=== PATIENT | female | born 1990 | race Caucasian/White ===

== ENCOUNTER 2016-11-29 09:25 | Emergency (ER) | payer MEDICAID ==
[~2016-11-29] VITALS: Ht 160 cm; Wt 75.0 kg
[2016-11-29 09:29] VITALS: BP 116/75; PULSE 89; RESP 15; TEMP 98.1; O2SAT 99
[2016-11-29] MEDS ORDERED: SYNT300T PO (09:39)
[2016-11-29] MEDS ORDERED: LIPI10TA PO (09:39)
[2016-11-29] MEDS ORDERED: BACT800T5 PO (09:41)
--- NOTE | 2016-11-29 09:41 | PD ---
HPI Chief Complaint: Skin Problem Time Seen by Provider: 09:33 Travel History International Travel<30 days: No Contact w/Intl Traveler<30days: No Traveled to known affect area: No History of Present Illness HPI A 26-year-old woman who presents to the emergency department complaining of painful irritation redness and swelling and inside of her left thigh. Is been ongoing for about 4 days or so. Today started draining spontaneously. She's never had bad skin infections before. No medical history except for hypothyroidism. No fevers or chills. No other complaints. History Past Medical History Narrative Medical Hypothyroidism Tetanus Vaccination: Unknown Influenza Vaccination: Yes LMP: 11/24/16 Social History Alcohol Use: Yes (social) Tobacco Use: Yes Review of Systems Except as stated in HPI: all other systems reviewed are Neg Physical Exam Narrative GENERAL: Well-appearing 26-year-old woman, no acute distress. SKIN: Warm and dry. CARDIOVASCULAR: Warm and well perfused. RESPIRATORY: Normal rate and effort. MUSCULOSKELETAL: Small approximately 3 x 2 area of erythema redness on the upper left inner thigh. There is some spontaneous purulent drainage. His little bit of induration below that. No surrounding erythema. NEUROLOGICAL: Awake and alert. No gross deficits. Data Data Last Documented VS Vital Signs Date Time Temp Pulse Resp B/P Pulse Ox O2 Delivery O2 Flow Rate FiO2 11/29/16 09:29 98.1 89 15 116/75 99 MDM Medical Decision Making Medical Screen Exam Complete: Yes Emergency Medical Condition: Yes Differential Diagnosis Abscess, sialitis, phlegmon, ingrown hair, other Narrative Course Medical decision-making new 26-year-old woman with small abscess spontaneously draining on the upper left thigh. We'll recommend continue warm compresses 4 times daily, Bactrim. Diagnosis Primary Impression: Abscess of left thigh Additional Instructions: Take Bactrim as prescribed. Apply warm compresses 4 times daily as discussed. Return to emergency department for any worsening pain redness swelling fevers or any other new or worsening symptoms. Med/Other Pt SpecificInfo: Prescription(s) given Scripts Sulfamethoxazole-Trimethoprim (Bactrim DS)800-160 Mg Tab1 Tab PO BID 7 Days Prov:Georges Ramos MD 11/29/16 Disposition: 01 DISCHARGE HOME Condition: Stable Georges Ramos MD Nov 29, 2016 09:41
== END 2016-11-29 12:35 | disposition home or self-care (01) ==
LOC: NEPD 09:25
DX: L02.416 Cutaneous abscess of left lower limb (principal); E03.9 Hypothyroidism, unspecified; Z72.0 Tobacco use
CPT/HCPCS: 99283